=== PATIENT | female | born 1970 | race Caucasian/White ===

== ENCOUNTER 2023-09-16 22:26 | Inpatient (IN) ==
[2023-09-16 23:15] LABS: ABS Basophils 0.1 10^3/uL (0.0-0.1); ABS Eosinophils 0.1 10^3/uL (0.0-0.5); ABS Lymphocytes 3.4 10^3/uL (1.0-4.8); ABS Monocytes 0.6 10^3/uL (0.0-0.9); ABS Neutrophils 5.7 10^3/uL (1.5-7.6); Eosinophil % 0.9 %; Hematocrit 45.1 % (35-45); Hemoglobin 15.4 g/dL (11.5-14.3); Lymphocyte % 34.6 %; Mean Corpuscular Hemoglobin 32.2 pg (27-33); Mean Corpuscular Hgb Conc 34.1 g/dL (31-36); Mean Corpuscular Volume 94.5 fL (80-97); Mean Platelet Volume 7.8 fL (7.5-11.2); Platelet Count 255 10^3/uL (150-450); Red Blood Count 4.78 10^6/uL (3.63-4.92); Red Cell Distribution Width 13.2 % (12-17); White Blood Count 9.8 10^3/uL (3.8-11.8)
[2023-09-17 00:22] LABS: Urine Appearance Clear; Urine Bilirubin Negative (Negative); Urine Blood Negative (Negative); Urine Color Colorless; Urine Glucose Negative (Negative); Urine Ketones Negative (Negative); Urine Nitrite Negative (Negative); Urine Protein Negative (Negative); Urine Specific Gravity 1.004 (1.002-1.030); Urine Urobilinogen Negative (Negative); Urine pH 5.5 (5.0-8.0)
[2023-09-17 00:25] LABS: ALT 17 U/L (7-52); AST 25 U/L (13-39); Acetaminophen < 15 mcg/mL; Albumin 4.9 g/dL (3.2-5.2); Albumin/Globulin Ratio 1.5 (1-3); Alcohol, S 311 mg/dL (<13); Alkaline Phosphatase 95 U/L (35-149); Anion Gap 13 mmol/L (2-16); Blood Urea Nitrogen 9 mg/dL (6-24); CO2 Carbon Dioxide 27 mmol/L (22-32); Calcium 9.7 mg/dL (8.6-10.3); Chloride 98 mmol/L (101-111); Creatinine, Serum 0.87 mg/dL (0.51-0.95); Globulin 3.2 g/dL (2-4); Glucose 109 mg/dL (70-100); Potassium 3.6 mmol/L (3.5-5.0); Salicylate < 2.50 mg/dL (<30); Sodium 138 mmol/L (135-145); Total Bilirubin 0.3 mg/dL (0.2-1.0); Total Protein 8.1 g/dL (6.4-8.9); eGFR CKD-EPI 79.1 (>60)
[2023-09-17 00:38] LABS: TSH Ultra Thyroid Stim Horm 1.52 mcIU/mL (0.34-5.60)
[2023-09-17 00:46] LABS: Urine Benzodiazepine Screen None Detected (None Detect); Urine Cannabinoids Screen None Detected (None Detect); Urine Opiates Screen None Detected (None Detect)
[2023-09-17] MEDS: Ondansetron ODT 4 mg TAB 4 MG TAB PO ONE (04:45)
[2023-09-17] MEDS: Lactated Ringers 1000 ml BAG 1,000 ML IV ONE (05:35)
[2023-09-17] MEDS ORDERED: Al Hydrox/Mg Hydrox/Simet LIQ 30 ML UDC PO PRN (11:43)
[2023-09-17] MEDS: Vitamin THERAPEUTIC TAB PO SCH (12:16)
[2023-09-17] MEDS ORDERED: Losartan/HCTZ 100/25 TAB (NF) PO SCH (16:00)
[2023-09-18 08:12] LABS: HDL Cholesterol 74.5 mg/dL
[2023-09-23 09:23] VITALS: BP 117/73
== END 2023-09-23 12:20 | disposition home or self-care (01) | DRG 775 ==
LOC: ED 22:26 → EDHOLD 09-17 10:14 → BSU 09-17 10:38
PROVIDERS: ADMIT Psychiatry & Neurology Psychiatry; ATTEND Psychiatry & Neurology Psychiatry